=== PATIENT | male | born 1970 | race Caucasian/White ===

== ENCOUNTER → 2020-04-28 | Outpatient (CLI) | payer OTHER | LOC: LAB 08:05 | PROVIDERS: ATTEND Nurse Anesthetist, Certified Registered | DX: Z01.812 Encounter for preprocedural laboratory examination (principal); Z20.822 Contact with and (suspected) exposure to COVID-19 | CPT/HCPCS: U0003 ==

== ENCOUNTER → 2020-05-02 | Day surgery (SDC) | payer OTHER ==
[~2020-05-02] MED LIST: IPRATRPIUM/ALBUTEROL 0.5/2.5MG 3 ML NEBU. NEB PRN; IV RINGERS SOLUTION,LACTATED 1,000 ML IV SCH; LIDOCAINE 2% PF 5 ML VIAL. ONE; MIDAZOLAM HCL PF 2 MG/2 ML VIAL. IV ONE; ONDANSETRON PF 4 MG/2 ML VIAL. IV PRN; PROPOFOL 10,000 MCG/ML (20ML) VIAL IV ONE
[2020-05-02 14:32] VITALS: BP 113/78
== END | disposition home or self-care (01) ==
LOC: SURG 12:35
PROVIDERS: ATTEND Surgery
DX: Z12.11 Encounter for screening for malignant neoplasm of colon (principal); Z87.891 Personal history of nicotine dependence; Z79.899 Other long term (current) drug therapy; Z72.89 Other problems related to lifestyle
CPT/HCPCS: 45378; J2001; J2704; J7120

== ENCOUNTER → 2020-06-23 | Outpatient (CLI) | payer OTHER ==
[2020-05-02 14:32] VITALS: BP 113/78
== END ==
LOC: LAB 08:05
PROVIDERS: ATTEND Nurse Anesthetist, Certified Registered
DX: Z01.812 Encounter for preprocedural laboratory examination (principal); K42.9 Umbilical hernia without obstruction or gangrene; Z20.822 Contact with and (suspected) exposure to COVID-19
CPT/HCPCS: U0003; U0005

== ENCOUNTER → 2020-06-28 | Day surgery (SDC) | payer OTHER ==
[~2020-06-28] MED LIST changes: +ACETAMINOPHEN 500 MG TABLET PO ONE; +BUPIVACAINE-EPI 0.25%-1:200000 MPF 30 ML VIAL. INJ ONE; +BUPIVACAINE-EPI 0.25%-1:200000 MPF 30 ML VIAL. ONE; +GLYCOPYRROLATE 1 MG/5 ML VIAL. ONE; +HYDROcodone/APAP 5/325MG 1 TAB TABLET ONE; +HYDROcodone/APAP 5/325MG 1 TAB TABLET PO PRN; +KETOROLAC 30 MG/ML VIAL. ONE; +MIDAZOLAM HCL PF 2 MG/2 ML VIAL. ONE; +NEOSTIGMINE 10 MG/10 ML VIAL. ONE; +ONDANSETRON PF 4 MG/2 ML VIAL. ONE; +ROCURONIUM 50 MG/5 ML VIAL. ONE; +SEVOFLURANE 31 TO 60 MINUTES. IH ONE; +SUCCINYLCHOLINE 200 MG/10 ML VIAL. ONE; +ceFAZolin SODIUM 2 GM in IV DEXTROSE 5% 50 ML IV ONE
--- NOTE | 2020-06-28 09:56 | PDOC4 ---
Operative Report DATE June 28, 2020 at 954 Preop Diagnosis Umbilical hernia Post-op Diagnosis Same Operation Performed Umbilical hernia repair Patient is 49-year-old gentleman with complaints of a painful bulge at his umbilicus. Procedure of umbilical hernia repair was explained to the patient detail risk-benefit were also discussed including bleeding infection alternatives to this procedure also discussed with patient who seemed to understand and gave both verbal and written consent to have the procedure performed. Patient was taken to the operating room placed in the supine position general anesthesia was initiated once patient was sleeping intubated his abdomen was prepped and draped usual sterile fashion using ChloraPrep. An area just above the umbilicus was injected with quarter percent Marcaine with epinephrine incision was made with a 15 blade scalpel is carried down through subcutaneous tissue using electrocautery to excise the hernia sac and contents which were a small amount of omentum. The hernia defect fascia was closed with a [id number] 0 Vicryl suture and the skin was reapproximated for subcuticular Monocryl Mastisol Steri-Strips and island dressing were applied. Patient was awakened and extubated operating room taken to recovery in stable condition all sponge instrument needle counts listed as correct estimated blood loss 5 mL Surgeon Justni ANESTHESIA PROPOSED: GENERAL, LOCAL Blood Loss 5 mL Specimen Hernia sac and contents Complications None LAVONNE KIRBY MD Jun 28, 2020 09:55
--- NOTE | 2020-06-28 09:57 | DISCH ---
DISCHARGE INSTRUCTIONS-DC Condition on Discharge Condition on Discharge: Stable Activity after Discharge Activity Instructions for Disc: Avoid exertion Other activity instructions: No lifting more than 20 pounds for 2 weeks Diet after Discharge Diet after Discharge: Regular Wound/Incision Care Other wound/incision instructi: May shower in 24 hours Contacting the DRKallie after DC Call your doctor for: If your condition worsens Follow-Up Follow up with: Dr. Kirby in 2 weeks LAVONNE KIRBY MD Jun 28, 2020 09:57
[2020-06-28 11:06] VITALS: BP 118/77
== END | disposition home or self-care (01) ==
LOC: SURG 08:22
PROVIDERS: ATTEND Surgery
DX: K42.9 Umbilical hernia without obstruction or gangrene (principal); Z72.89 Other problems related to lifestyle; Z79.899 Other long term (current) drug therapy; Z87.891 Personal history of nicotine dependence
CPT/HCPCS: 49585; J0330; J0696; J1885; J2001; J2405; J2704; J2710; J3010; J3490; J7120; 88302; J2250